=== PATIENT | female | born 1980 | race Two or more races ===

== ENCOUNTER 2018-04-29 00:41 | Emergency (ER) | payer SELFPAY ==
[~2018-04-29] VITALS: Ht 162.6 cm; Wt 77.1 kg
--- NOTE | 2018-04-29 01:16 | NUR ---
MD PÉREZ AT BEDSIDE FOR MSE
[2018-04-29] MEDS ORDERED: KETOROLAC TROMETHAMINE 60 MG INJ IM ONE ×2 (01:30→01:50)
[2018-04-29 01:43] LABS: *BILIRUBIN,URIN NEGATIVE (NEGATIVE); *BLOOD, URINE NEGATIVE (NEGATIVE); *COLOR,URINE YELLOW (YELLOW); *KETONES,URINE NEGATIVE (NEGATIVE); *PROTEIN,URINE NEGATIVE (NEGATIVE); *UROBILINOGEN,URINE 0.2 E.U./dl (NORMAL); LEUKOCYTE ESTERASE ,URINE NEGATIVE (NEGATIVE); NITRITE, URINE POSITIVE (NEGATIVE); PH,URINE 5.5 (5.0-8.0); UGLUCOSE NEGATIVE (NEGATIVE)
[2018-04-29 01:44] LABS: *CLARITY,URINE HAZY (CLEAR)
[2018-04-29 01:46] LABS: *URINE HCG, QUAL NEGATIVE (NEGATIVE)
[2018-04-29 01:50] LABS: BACTERIA,URINE MANY /HPF (NONE SEEN); RBC,URINE 0-3 /HPF (0-3); SQUAMOUS EPITHELIAL CELL,UR FEW /HPF (NONE SEEN)
--- NOTE | 2018-04-29 02:00 | NUR ---
Patient discharged to home in stable conditon. Written and verbal after care instructions given. Patient verbalizes understanding of instructions. Patient able to ambulate unassisted with a steady gait. Patient left with all personal belongings.
[2018-04-29 02:12] VITALS: BP 124/72
== END 2018-04-29 02:00 | disposition home or self-care (01) ==
LOC: ER 00:48
DX: M54.41 Lumbago with sciatica, right side (principal); N39.0 Urinary tract infection, site not specified
CPT/HCPCS: 84703; A4663; J1885